=== PATIENT | male | born 1965 | race Caucasian/White ===

== ENCOUNTER 2016-11-18 18:12 | Emergency (ER) | payer OTHER ==
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
--- NOTE | 2016-11-18 22:27 | ED ORDER SUMMARY ---
..... Patient: PRASANTH OSMAN OrderSheet [facility] VisitID: [id number] [place] [address] 50y, M Registration Date/Time: 11/18/2016 ORDER SHEET Weight: 113.3 kg (stated) Allergies: No Known Drug Allergy GENERAL ORDERS: CBC w Diff Urgent (19:45 11/18/2016 Milton Linares) (Ack 20:00 CHagerty ER Wind Commissioning Technician) (21:04 CHagerty ER Wind Commissioning Technician) CMP Urgent (19:45 11/18/2016 Milton Linares) (Ack 20:00 CHagerty ER Wind Commissioning Technician) (21:04 CHagerty ER Wind Commissioning Technician) Stool for C. Difficile Urgent (19:45 11/18/2016 Milton Linares) (Ack 20:00 CHagerty ER Wind Commissioning Technician) (21:04 CHagerty ER Wind Commissioning Technician) Lipase Urgent (21:03 11/18/2016 Sylvia Linares) (21:04 CHagerty ER Wind Commissioning Technician) Urinalysis Urgent (21:03 11/18/2016 Sylvia Linares) (Ack 21:04 CHagerty ER Wind Commissioning Technician) (21:57 Michael R.N.) MEDICATION ORDERS: Metronidazole PO 500 mg (NOW) (22:23 11/18/2016 Sylvia Linares) (Ack 22:27 Michael R.N.) (22:32 Michael R.N.) IV FLUIDS: IV Saline Lock (19:45 11/18/2016 Milton Linares) (Ack 20:32 Michael R.N.) ORDER SHEET NOTES: [Electronically signed by Thi Christianson R.N. (22:39 11/18/2016)] [Electronically signed by Mahin Munoz Dr. (04:26 11/24/2016)] [Electronically locked/signed by Thi Christianson R.N. (22:39 11/18/2016)]
--- NOTE | 2016-11-18 22:27 | ED ORDER SUMMARY ---
..... Patient: PRASANTH OSMAN OrderSheet [facility] VisitID: [id number] [place] [address] 50y, M Registration Date/Time: 11/18/2016 ORDER SHEET Weight: 113.3 kg (stated) Allergies: No Known Drug Allergy GENERAL ORDERS: CBC w Diff Urgent (19:45 11/18/2016 Milton Linares) (Ack 20:00 CHagerty ER Tailercpa) (21:04 CHagerty ER Tailercpa) CMP Urgent (19:45 11/18/2016 Milton Linares) (Ack 20:00 CH[facility]ty ER Tail[facility]pa) (21:04 CHagerty ER Tailercpa) Stool for C. Difficile Urgent (19:45 11/18/2016 Milton Linares) (Ack 20:00 CHagerty ER Tail[place]pa) (21:04 CHagerty ER T[place]pa) Lipase Urgent (21:03 11/18/2016 Sylvia Linares) (21:04 CHagerty ER Tailercpa) Urinalysis Urgent (21:03 11/18/2016 Sylvia Linares) (Ack 21:04 CHagerty ER Tailercpa) (21:57 Michael R.N.) MEDICATION ORDERS: Metronidazole PO 500 mg (NOW) (22:23 11/18/2016 Sylvia Linares) (Ack 22:27 Michael R.N.) (22:32 Michael R.N.) IV FLUIDS: IV Saline Lock (19:45 11/18/2016 Milton Linares) (Ack 20:32 Michael R.N.) ORDER SHEET NOTES: [Electronically signed by Thi Christianson R.N. (22:39 11/18/2016)] [Electronically signed by Mahin Munoz Dr. (04:26 11/24/2016)] [Electronically locked/signed by Thi Christianson R.N. (22:39 11/18/2016)]
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
--- NOTE | 2016-11-24 04:26 | ED MED RECONCILIATION SUMMARY ---
Patient: PRASANTH OSMAN Medication Reconciliation Report [facility] VisitID: [id number] [address] [place] [address] 50y, M Registration Date/Time: 11/18/2016 Weight: 113.3 kg Height/Length: 72 in. BMI: 33.9 ALLERGIES: No Known Drug Allergy The patient's Home Medications are listed below: NONE. The source(s) of the original Home Medication information: Not obtained. The following Medications were given to the patient in the Emergency Department: Metronidazole [PO] PO 500 mg, administered: 11/18/2016 10:32:00 PM The following Medications were prescribed to the patient: None.
--- NOTE | 2016-11-24 04:26 | ED DISCHARGE INSTRUCTIONS ---
Patient: PRASANTH OSMAN General Instructions [facility] VisitID: [id number] [place] [address] 50y, M Registration Date/Time: 11/18/2016 Acute pseudomembranous colitis; infectious colitis. INSTRUCTIONS Warnings: GENERAL WARNINGS: Return or contact your physician immediately if your condition worsens or changes unexpectedly, if not improving as expected, or if other problems arise. SPECIFICALLY, return if you develop pain, fever, vomiting, the inability to keep fluids down, blood in vomitus, blood in diarrhea, fainting or lightheadedness. Your Current Medications: CONTINUE TAKING THE FOLLOWING MEDICATIONS: None*. Follow-up: Return to the emergency department as needed. Follow up with your doctor in three days. Reason for referral: recheck today's concerns. Summary of care provided to patient via paper. Screening today revealed the patient's blood pressure to be in the normal range. The patient should follow up with a primary care provider for blood pressure management. Understanding of the discharge instructions verbalized by patient. (Electronically signed by Mahin Munoz Dr. 11/24/2016 4:26)
--- NOTE | 2016-11-24 04:26 | ED MED RECONCILIATION SUMMARY ---
Patient: PRASANTH OSMAN Medication Reconciliation Report [facility] VisitID: [id number] [address] [place] [address] 50y, M Registration Date/Time: 11/18/2016 Weight: 113.3 kg Height/Length: 72 in. BMI: 33.9 ALLERGIES: No Known Drug Allergy The patient's Home Medications are listed below: NONE. The source(s) of the original Home Medication information: Not obtained. The following Medications were given to the patient in the Emergency Department: Metronidazole [PO] PO 500 mg, administered: 11/18/2016 10:32:00 PM The following Medications were prescribed to the patient: None.
--- NOTE | 2016-11-24 04:26 | ED MAR SUMMARY ---
..... Medication Administration Record [facility] [address] [place] [address] Patient: PRASANTH OSMAN Visit ID: [id number] 50y, M Weight: 113.3 kg Height/Length: 72 in BMI: 33.9 ALLERGIES: No Known Drug Allergy Given 22:32 11/18/2016 Thi Christianson RStuartNStuart Medication Administered: METRONIDAZOLE [PO], Dose: 500 mg PO. Medication Ordered: Metronidazole PO 500 mg (NOW).
--- NOTE | 2016-11-24 04:26 | ED DISCHARGE INSTRUCTIONS ---
Patient: PRASANTH OSMAN General Instructions [facility] VisitID: [id number] [place] [address] 50y, M Registration Date/Time: 11/18/2016 Acute pseudomembranous colitis; infectious colitis. INSTRUCTIONS Warnings: GENERAL WARNINGS: Return or contact your physician immediately if your condition worsens or changes unexpectedly, if not improving as expected, or if other problems arise. SPECIFICALLY, return if you develop pain, fever, vomiting, the inability to keep fluids down, blood in vomitus, blood in diarrhea, fainting or lightheadedness. Your Current Medications: CONTINUE TAKING THE FOLLOWING MEDICATIONS: None*. Follow-up: Return to the emergency department as needed. Follow up with your doctor in three days. Reason for referral: recheck today's concerns. Summary of care provided to patient via paper. Screening today revealed the patient's blood pressure to be in the normal range. The patient should follow up with a primary care provider for blood pressure management. Understanding of the discharge instructions verbalized by patient. (Electronically signed by Mahin Munoz Dr. 11/24/2016 4:26)
--- NOTE | 2016-11-24 04:26 | ED MAR SUMMARY ---
..... Medication Administration Record [facility] [address] [place] [address] Patient: PRASANTH OSMAN Visit ID: [id number] 50y, M Weight: 113.3 kg Height/Length: 72 in BMI: 33.9 ALLERGIES: No Known Drug Allergy Given 22:32 11/18/2016 Thi Christianson RStuartNStuart Medication Administered: METRONIDAZOLE [PO], Dose: 500 mg PO. Medication Ordered: Metronidazole PO 500 mg (NOW).
== END 2016-11-18 22:25 | disposition home or self-care (01) ==
LOC: ED SRH 18:12
DX: A04.7 Enterocolitis due to Clostridium difficile (principal)
CPT/HCPCS: 90004; 90100; 90112; 92235; 95059